=== PATIENT | female | born 1980 | race Caucasian/White ===

== ENCOUNTER → 2016-07-15 | Outpatient (CLI) | payer OTHER ==
--- NOTE | ~2016-07-15 | EKG ---
[address] [address] ELECTROCARDIOGRAM REPORT Name: BRICE GREEN Room #: REG [facility]#: [id number] Admission: 07/15/16 Attend Phys: Ria Miranda DNP Discharge: Date of : 76 Report #: [id number] THIS REPORT FOR: //name// [facility] Test Date: 2016-07-15 Test Time: 12:24:11 Pat Name: BRICE GREEN Department: Room: Gender: F [employer]ing Officer: isaak : 1980 Requested By: Ria Miranda Order Number: [id number] MD: Alon Sifuentes Measurements Intervals [place] Rate: 89 P: 60 OK: 141 QRS: 236 QRSD: 97 T: 29 QT: 388 QTc: 473 Interpretive Statements Sinus rhythm S1,S2,S3 pattern RSR' in V1 or V2, probably normal variant No previous ECG available for comparison Electronically Signed On 07-16-2016 8:13:52 CDT by Alon Sifuentes [email or web address] <ELECTRONICALLY SIGNED> By: Alon Sifuentes MD, [facility] 07/16/16 0813 D: [id number] Alon Sifuentes MD, FACC /EPI
[2016-07-15 14:08] LABS: BASOPHILS 0.3 % (0.0-2.0); EOSINOPHILS 0.9 % (0.0-3.0); HEMATOCRIT 42.9 % (37.0-47.0); HEMOGLOBIN 14.7 gm/dL (12.0-15.0); LYMPHOCYTES 26.8 % (24.0-44.0); MCH 32.2 pg (26.0-34.0); MCHC 34.3 g/dL (28.0-37.0); MCV 93.9 fL (80.0-100.0); MONOCYTES 6.5 % (1.0-8.0); PLATELET COUNT 203 thou/uL (150-400); POLYS 65.5 % (36.0-66.0); RBC 4.57 mil/uL (4.20-5.00); RDW 12.3 % (10.5-14.5); WBC 6.1 thou/uL (4.0-11.0)
[2016-07-15 14:09] LABS: MANUAL DIFF NO
[2016-07-15 14:28] LABS: CREATININE 0.7 mg/dL (0.6-1.0); POTASSIUM 3.8 mmol/L (3.5-5.1)
[2016-07-15 14:33] LABS: TOTAL BILIRUBIN 0.4 mg/dL (<0.1-1.0); TOTAL PROTEIN 7.6 g/dL (6.4-8.2)
== END ==
LOC: RAD 12:00
PROVIDERS: Nurse Practitioner
DX: M54.9 Dorsalgia, unspecified (principal); R42 Dizziness and giddiness

== ENCOUNTER → 2016-10-11 | Outpatient (CLI) | payer OTHER | LOC: RAD 08:43 | DX: M54.41 Lumbago with sciatica, right side (principal); G89.29 Other chronic pain ==